=== PATIENT | male | born 1985 | race Two or more races ===

== ENCOUNTER 2020-03-21 10:14 | Outpatient (CLI) | payer OTHER ==
[~2020-03-21] VITALS: Ht 193 cm; Wt 89.8 kg
[2020-03-21] MEDS ORDERED: LIPO-FLAVONOID1 EACH PO (11:03)
== END 2020-03-21 11:15 | disposition home or self-care (01) ==
LOC: OFIC 805 10:14
PROVIDERS: ATTEND Otolaryngology
DX: H93.12 Tinnitus, left ear (principal); H61.23 Impacted cerumen, bilateral